=== PATIENT | female | born 1950 | race Caucasian/White ===

== ENCOUNTER → 2016-06-17 | Outpatient (CLI) | payer BC, MEDICARE ==
[~2016-06-17] MED LIST: CALCIUM CITRAT200 MG PO; CENTRUM SILVER1 TA1 PO; FERROUS SU325 MG/TAB PO; FISH OIL CONC1000 MG PO; FOLIC ACID PO; HCTZ 25MG25 MG PO; LISINOPRIL10 MG PO; PRILOSEC 20MG20 MG PO; VITAMIN C250250 MG PO
== END ==
LOC: MC.RAD 07:00
DX: Z12.31 Encounter for screening mammogram for malignant neoplasm of breast (principal)

== ENCOUNTER → 2016-07-19 | Outpatient (CLI) | payer MEDICARE | LOC: COL.RAD 08:15 | DX: M25.551 Pain in right hip (principal) | CPT/HCPCS: J3301 ==

== ENCOUNTER → 2017-06-23 | Outpatient (CLI) | payer MEDICARE, OTHER | LOC: MC.RAD 13:44 | DX: Z12.31 Encounter for screening mammogram for malignant neoplasm of breast (principal) ==

== ENCOUNTER → 2017-11-04 | Outpatient (CLI) | payer MEDICARE, OTHER | LOC: SUN.DIA 13:22 | DX: R73.03 Prediabetes (principal); I10 Essential (primary) hypertension; E66.9 Obesity, unspecified | CPT/HCPCS: G0108 ==

== ENCOUNTER → 2017-11-20 | Outpatient (CLI) | payer MEDICARE, OTHER ==
[~2017-11-20] VITALS: Ht 156.2 cm; Wt 85.0 kg
[~2017-11-20] MED LIST changes: +B-12 500 MCG PO; +CALCIUM 600-D 61 TAB PO; -CALCIUM CITRAT200 MG PO; +GLUCOPHAGE500 MG/TAB PO; +IRON TABLETS325 MG PO; +LUTEIN 15 MG-0.1 SGL PO; +VITAMIN B COMPL1 SGL PO; +VITAMIN C500 MG PO; +VITAMIN D31000 I1 PO; +ZESTORETIC 12.51 TAB PO
[2017-11-20 15:01] VITALS: BP 126/82; PULSE 64
== END ==
LOC: LIGHT 11:35
DX: R73.01 Impaired fasting glucose (principal); I10 Essential (primary) hypertension; E78.00 Pure hypercholesterolemia, unspecified; Z71.3 Dietary counseling and surveillance; Z68.34 Body mass index [BMI] 34.0-34.9, adult; E66.9 Obesity, unspecified
CPT/HCPCS: G0463

== ENCOUNTER → 2017-12-23 | Outpatient (CLI) | payer MEDICARE, OTHER | LOC: SUN.DIA 11:30 | DX: R73.03 Prediabetes (principal); I10 Essential (primary) hypertension; E66.9 Obesity, unspecified | CPT/HCPCS: G0108 ==

== ENCOUNTER → 2017-12-25 | Outpatient (CLI) | payer MEDICARE, OTHER ==
[~2017-12-25] VITALS: Ht 156.2 cm; Wt 80.5 kg
[2017-12-25 13:55] VITALS: BP 134/80; PULSE 76
== END ==
LOC: LIGHT 13:38
DX: R73.01 Impaired fasting glucose (principal); I10 Essential (primary) hypertension; E78.00 Pure hypercholesterolemia, unspecified; E66.9 Obesity, unspecified; Z68.33 Body mass index [BMI] 33.0-33.9, adult; Z71.3 Dietary counseling and surveillance
CPT/HCPCS: G0463

== ENCOUNTER → 2017-12-29 | Outpatient (CLI) | payer MEDICARE, OTHER ==
[~2017-12-29] VITALS: Ht 156.2 cm; Wt 79.8 kg
[2017-12-29 13:50] VITALS: BP 132/66; PULSE 72
== END ==
LOC: LIGHT 13:34
DX: I10 Essential (primary) hypertension (principal); R73.01 Impaired fasting glucose; E78.00 Pure hypercholesterolemia, unspecified; E66.9 Obesity, unspecified; Z68.33 Body mass index [BMI] 33.0-33.9, adult; Z71.3 Dietary counseling and surveillance

== ENCOUNTER → 2018-01-29 | Outpatient (CLI) | payer MEDICARE, OTHER | LOC: LIGHT 01-01 15:33 | DX: R73.01 Impaired fasting glucose (principal); I10 Essential (primary) hypertension; E78.00 Pure hypercholesterolemia, unspecified; E66.01 Morbid (severe) obesity due to excess calories; Z71.3 Dietary counseling and surveillance | CPT/HCPCS: G0463 ==

== ENCOUNTER → 2018-03-12 | Outpatient (CLI) | payer MEDICARE, OTHER ==
[~2018-03-12] VITALS: Ht 156.2 cm; Wt 74.6 kg
[~2018-03-12] MED LIST changes: -B-12 500 MCG PO; +B-121000 MCG PO
[2018-03-12 13:49] VITALS: BP 110/80; PULSE 80
== END ==
LOC: LIGHT 11:24
DX: R73.01 Impaired fasting glucose (principal); I10 Essential (primary) hypertension; E78.00 Pure hypercholesterolemia, unspecified; E66.9 Obesity, unspecified; Z68.30 Body mass index [BMI] 30.0-30.9, adult; Z71.3 Dietary counseling and surveillance
CPT/HCPCS: G0463

== ENCOUNTER → 2018-04-22 | Outpatient (CLI) | payer MEDICARE, OTHER | LOC: SUN.DIA 10:13 | DX: R73.03 Prediabetes (principal); I10 Essential (primary) hypertension; E66.9 Obesity, unspecified | CPT/HCPCS: G0108 ==

== ENCOUNTER → 2018-04-30 | Outpatient (CLI) | payer MEDICARE, OTHER ==
[~2018-04-30] VITALS: Ht 156.2 cm; Wt 71.7 kg
[2018-04-30 13:50] VITALS: BP 120/66; PULSE 80
== END ==
LOC: LIGHT 13:30
DX: R73.01 Impaired fasting glucose (principal); I10 Essential (primary) hypertension; E78.00 Pure hypercholesterolemia, unspecified; E66.9 Obesity, unspecified; Z68.29 Body mass index [BMI] 29.0-29.9, adult; Z71.3 Dietary counseling and surveillance
CPT/HCPCS: G0463

== ENCOUNTER → 2018-06-04 | Outpatient (CLI) | payer MEDICARE, OTHER ==
[~2018-06-04] VITALS: Ht 156.2 cm; Wt 70.5 kg
[2018-06-04 14:40] VITALS: BP 116/62; PULSE 64
== END ==
LOC: LIGHT 13:29
DX: R73.01 Impaired fasting glucose (principal); I10 Essential (primary) hypertension; E78.00 Pure hypercholesterolemia, unspecified; E66.9 Obesity, unspecified; Z71.3 Dietary counseling and surveillance

== ENCOUNTER → 2018-06-26 | Outpatient (CLI) | payer MEDICARE, OTHER | LOC: MC.RAD 07:42 | DX: Z12.31 Encounter for screening mammogram for malignant neoplasm of breast (principal) ==

== ENCOUNTER → 2018-07-16 | Outpatient (CLI) | payer MEDICARE, OTHER | LOC: LIGHT 13:30 | DX: R73.01 Impaired fasting glucose (principal); I10 Essential (primary) hypertension; E78.00 Pure hypercholesterolemia, unspecified; E66.9 Obesity, unspecified; Z71.3 Dietary counseling and surveillance | CPT/HCPCS: G0463 ==

== ENCOUNTER → 2018-08-27 | Outpatient (CLI) | payer MEDICARE, OTHER ==
[~2018-08-27] MED LIST changes: +LIPITOR20 MG PO
== END ==
LOC: LIGHT 13:55
DX: R73.01 Impaired fasting glucose (principal); I10 Essential (primary) hypertension; E78.00 Pure hypercholesterolemia, unspecified; E66.9 Obesity, unspecified; Z71.3 Dietary counseling and surveillance
CPT/HCPCS: G0463

== ENCOUNTER → 2018-10-01 | Outpatient (CLI) | payer MEDICARE, OTHER ==
[~2018-10-01] VITALS: Ht 156.2 cm; Wt 69.4 kg
[2018-10-01 14:09] VITALS: BP 114/64; PULSE 80
== END ==
LOC: LIGHT 11:56
DX: R73.01 Impaired fasting glucose (principal); I10 Essential (primary) hypertension; E78.00 Pure hypercholesterolemia, unspecified; E66.9 Obesity, unspecified; Z68.28 Body mass index [BMI] 28.0-28.9, adult; Z71.3 Dietary counseling and surveillance
CPT/HCPCS: G0463

== ENCOUNTER → 2018-12-10 | Outpatient (CLI) | payer MEDICARE, OTHER ==
[~2018-12-10] VITALS: Ht 156.2 cm; Wt 69.2 kg
[2018-12-10 13:51] VITALS: BP 130/70; PULSE 80
== END ==
LOC: LIGHT 11:46
DX: R73.01 Impaired fasting glucose (principal); I10 Essential (primary) hypertension; E78.00 Pure hypercholesterolemia, unspecified; E66.9 Obesity, unspecified; Z68.28 Body mass index [BMI] 28.0-28.9, adult; Z71.3 Dietary counseling and surveillance
CPT/HCPCS: G0463

== ENCOUNTER → 2019-02-11 | Outpatient (CLI) | payer MEDICARE, OTHER ==
[~2019-02-11] VITALS: Ht 156.2 cm; Wt 70.1 kg
[2019-02-11 13:48] VITALS: BP 130/70; PULSE 76
== END ==
LOC: LIGHT 12:00
DX: R73.01 Impaired fasting glucose (principal); I10 Essential (primary) hypertension; E78.00 Pure hypercholesterolemia, unspecified; E66.9 Obesity, unspecified; Z68.28 Body mass index [BMI] 28.0-28.9, adult; Z71.3 Dietary counseling and surveillance
CPT/HCPCS: G0463

== ENCOUNTER → 2019-05-06 | Outpatient (CLI) | payer MEDICARE, OTHER ==
[~2019-05-06] VITALS: Ht 156.2 cm; Wt 71.4 kg
[2019-05-06 13:56] VITALS: BP 110/62; PULSE 80
== END ==
LOC: LIGHT 13:27
DX: Z68.29 Body mass index [BMI] 29.0-29.9, adult (principal); I10 Essential (primary) hypertension; R73.01 Impaired fasting glucose; E78.00 Pure hypercholesterolemia, unspecified
CPT/HCPCS: G0463

== ENCOUNTER → 2019-06-17 | Outpatient (CLI) | payer MEDICARE, OTHER ==
[~2019-06-17] VITALS: Ht 156.2 cm; Wt 70.5 kg
[2019-06-17 13:41] VITALS: BP 120/68; PULSE 80
== END ==
LOC: LIGHT 13:28
DX: Z68.28 Body mass index [BMI] 28.0-28.9, adult (principal); R73.01 Impaired fasting glucose; E78.00 Pure hypercholesterolemia, unspecified; I10 Essential (primary) hypertension
CPT/HCPCS: G0463

== ENCOUNTER → 2019-09-23 | Outpatient (CLI) | payer MEDICARE, OTHER ==
[~2019-09-23] VITALS: Ht 156.2 cm; Wt 73.9 kg
[2019-09-23 14:39] VITALS: BP 124/64; PULSE 76
== END ==
LOC: LIGHT 07:39
DX: E66.8 Other obesity (principal); Z68.30 Body mass index [BMI] 30.0-30.9, adult; I10 Essential (primary) hypertension; R73.01 Impaired fasting glucose; E78.00 Pure hypercholesterolemia, unspecified
CPT/HCPCS: G0463

== ENCOUNTER → 2021-09-11 | Outpatient (CLI) | payer MEDICARE, OTHER | LOC: MC.RAD 09:20 | DX: Z12.31 Encounter for screening mammogram for malignant neoplasm of breast (principal) ==

== ENCOUNTER 2022-03-26 16:10 | Inpatient (IN) | payer MEDICARE, OTHER ==
[~2022-03-26] VITALS: Ht 155 cm; Wt 84.2 kg
[~2022-03-26 16:10] MED LIST changes: +CENTRUM SILVER1 CTB PO; -CENTRUM SILVER1 TA1 PO; +LIPITOR 80MG80 MG PO
[2022-05-30] VITALS (12 sets, daily range): BP systolic 89–142; BP diastolic 32–67; PULSE 68–86; TEMP 97.5–98.2
[2022-05-30] MEDS ORDERED: CALCIUM-MAGNES1 EAC1 PO (06:34)
[2022-05-30] MEDS ORDERED: MASON NATURAL2000 IU PO (06:35)
[2022-05-30] MEDS ORDERED: NATURAL E400 IU PO (06:36)
[2022-05-30] MEDS ORDERED: FOLIC ACID 40400 MCG PO (06:37)
[2022-05-30] MEDS ORDERED: B-121000 MCG PO (06:37)
--- NOTE | 2022-05-30 10:09 | NUR ---
Pt arrived to the floor. She is alert and oriented, no pain complaints. Stated that her right hip feels a little like pins and needles. Tommie hose and SCDs on bilaterally. Aquacell to right hip with ice pack. Oriented pt to her room and educated on diet/plan of care. Pt bp is low. VICKY Taveras called Toshia MARRUFO regarding the 82/35 BP once she got to the floor. YARON Pope was ok with this low of BP until approximately noon. Pts son is at the bedside at this time. Gave her some ice water and jello
--- NOTE | 2022-05-30 14:00 | NUR ---
Pt continues to do well. She has gotten up with therapy, reports that her him feels good. Pt tolerating carb control diet. No needs, will continue to monitor
--- NOTE | 2022-05-30 15:21 | NUR ---
Pt does not have IS up to this time. PT is drowsy and does fall asleep quickly after conversation. Pt having some pain complaints in her right leg, ice pack in place
--- NOTE | 2022-05-30 18:31 | NUR ---
Pt doing well, reports her pain is tolerable and does not want anything for the pain. Son continues to be present in the room. Ice to right hip. Boosted pt in bed x2 assist. SCDs and maite on bilaterally
--- NOTE | 2022-05-30 19:00 | NUR ---
RECEIVED CHANGE OF SHIFT REPORT FROM DAY SHIFT RN. PATIENT RESTING IN BED DURING REPORT. NO NEEDS REPORTED AT TIME OF REPORT.
[2022-05-31 03:37] VITALS: BP 96/40; PULSE 82; TEMP 98
[2022-05-31 06:39] LABS: HEMATOCRIT 26.8 % (37.0-47.0); HEMOGLOBIN 9.2 g/dl (12.5-16.0)
--- NOTE | 2022-05-31 07:05 | NUR ---
CHANGE OF SHIFT REPORT GIVEN TO DAY SHIFT RN, MANUEL. PATIENT AMBULATED TO BATHROOM WITH SBA/GB/WW WITH NO PROBLEMS. DENIED CHEST PAIN/SOA/NAUSEA THIS SHIFT. TOOK OXYCODONE FOR PAIN EARLY THIS AM, SEE JUN.
[2022-05-31 08:00] VITALS: BP 101/46; PULSE 80; TEMP 98
--- NOTE | 2022-05-31 08:45 | NUR ---
Pt doing well, minimal to no pain complaints at this time. Pt is getting up and moving well with stand by assist. Pts son has been with her and is involved. Pt had breakfast, no complaints. Will continue to monitor
[2022-05-31 11:51] VITALS: BP 97/35; PULSE 74; TEMP 98.3
--- NOTE | 2022-05-31 13:00 | NUR ---
Pt continues to do well with little to no pain complaints. Pts son has been here most of the day. Pt refusing the tylenol at this time, states no pain. Pt hoping to get to go home with home health. Pts son states he will be here until Friday and can stay longer if needed.
--- NOTE | 2022-05-31 13:48 | NUR ---
PUSHPA met with the patient and her son, Mason (ph#[phone]), to discuss discharge plan. The patient lives alone in [place]. Mason lives in [place]. She reports independence with ADLs and has a cane and walker. She shares that she mostly takes spit baths and will just take one bath in the tub a week, due to the tub being "built for 7 ft man." The patient's PCP is Dr. Tyson Dixon and she receives her medications from [facility] in [facility]. The patient's DPOA-HC is in her chart and it designates her son, Mason. The patient plans to return home upon discharge. PT is recommending home health vs outpatient therapy. The patient states that she would like to go to [facility] on [address] [place] and receive outpatient therapy. Mason expressed how she will not have transport to the appointments, until she can drive again. He is more interested in home health for the patient. He also inquired about SNF. PUSHPA informed how the patient is walking 300 ft with PT and both PT/OT recommend home health vs outpatient. The patient is too functional. Mason verbalized understanding. The patient reports that she is open to doing home health, with the goal of then transitioning to outpatient therapy. PUSHPA provided her with Medicare.gov's list of home health agencies that serve [place]. The patient chose [facility]. PUSHPA contacted and faxed a referral to Javad at [facility]. Javad reports that they are able to accept the patient. *Discharge plan: home with home health*
[2022-05-31] MEDS ORDERED: CELEBREX 200MG200 MG PO (14:46)
[2022-05-31] MEDS ORDERED: TYLENOL 500MG500 MG PO (14:46)
[2022-05-31] MEDS ORDERED: ROXICODONE 55 MG/TAB PO (14:46)
[2022-05-31] MEDS ORDERED: ASPI325T6 PO (14:46)
[2022-05-31 15:48] VITALS: BP 91/62; PULSE 90; TEMP 98.4
--- NOTE | 2022-05-31 16:11 | NUR ---
The patient is to discharge back home today, 05/31, with home health services for PT from [facility]. PUSHPA notified and faxed orders to Javad at [facility]. No additional needs at this time.
--- NOTE | 2022-05-31 16:26 | NUR ---
Reviewed discharge instructions with pt to include prescriptions and follow up appointment. Pt continuest to not have any complaints of pain. INT removed and pt dressed and ready for discharge. Pt has ordered dinner and plans to eat before leaving. Informed her to notify nursing when she is ready
== END 2022-05-31 17:30 | disposition home health service (06) | DRG 470 ==
LOC: INPTSU 05-30 05:11 → SURG 05-30 07:15
PROVIDERS: Physician Assistant; ADMIT Orthopaedic Surgery
PROC: 0SR90JZ Replacement of Right Hip Joint with Synthetic Substitute, Open Approach (ICD-10-PCS; principal; 2022-05-30 07:15)
DX: M16.11 Unilateral primary osteoarthritis, right hip (principal); I10 Essential (primary) hypertension; E78.5 Hyperlipidemia, unspecified; I25.10 Atherosclerotic heart disease of native coronary artery without angina pectoris; E11.9 Type 2 diabetes mellitus without complications; G89.29 Other chronic pain; M62.81 Muscle weakness (generalized); M81.0 Age-related osteoporosis without current pathological fracture; Z79.84 Long term (current) use of oral hypoglycemic drugs
CPT/HCPCS: A9284; C1713; C1776; J0690; J2250; J2370; J2405; J2704; J7050; J7120; P9047

== ENCOUNTER → 2022-07-05 | Outpatient (RCR) | payer MEDICARE, OTHER ==
[~2022-07-05] MED LIST changes: +ASPI325T6 PO; +CALCIUM-MAGNES1 EAC1 PO; +CELEBREX 200MG200 MG PO; +FOLIC ACID 40400 MCG PO; +MASON NATURAL2000 IU PO; +NATURAL E400 IU PO; +ROXICODONE 55 MG/TAB PO; +TYLENOL 500MG500 MG PO
== END | disposition home or self-care (01) ==
LOC: MKS.ESL.PT
DX: M25.551 Pain in right hip (principal)

== ENCOUNTER 2022-08-02 09:00 | Outpatient (RCR) | payer MEDICARE, OTHER | END 2022-08-04 | disposition home or self-care (01) | LOC: MKS.ESL.PT | DX: M25.551 Pain in right hip (principal) ==

== ENCOUNTER → 2023-10-20 | Outpatient (CLI) | payer MEDICARE ==
[~2023-10-20] MED LIST changes: +HYZAAR 12.5 MG-1 TAB PO; +LR 1,000 ML IV SCH; +NATURAL FISH1200 MG; +NORCO 325 MG-51 TAB PO; +PRESERVISION A1 EAC3 PO; +TYLENOL PM EXTR1 TA1 PO
== END ==
LOC: MC.RAD 12:59
DX: C50.411 Malignant neoplasm of upper-outer quadrant of right female breast (principal)
CPT/HCPCS: A4648

== ENCOUNTER 2023-10-21 09:15 | Day surgery (SDC) | payer MEDICARE ==
[~2023-10-21] VITALS: Ht 154.9 cm; Wt 90.8 kg
[2023-10-21] VITALS (7 sets, daily range): BP systolic 108–141; BP diastolic 46–88; PULSE 68–79; TEMP 97.3–97.8
[~2023-10-21 09:15] MED LIST changes: -HYZAAR 12.5 MG-1 TAB PO; -LR 1,000 ML IV SCH; -NATURAL FISH1200 MG; -NORCO 325 MG-51 TAB PO; -PRESERVISION A1 EAC3 PO; -TYLENOL PM EXTR1 TA1 PO
[2023-10-21] MEDS ORDERED: Lidocaine PF 2% (20 MG/ML) 5 ML VIAL ONE (10:04)
[2023-10-21] MEDS ORDERED: fentaNYL 50 MCG/ML 2 ML VIAL ONE (10:04)
[2023-10-21] MEDS ORDERED: Midazolam 2 MG/2 ML VIAL ONE (10:04)
[2023-10-21] MEDS ORDERED: LR 1,000 ML IV ONE (11:45)
[2023-10-21] MEDS ORDERED: Ondansetron 4 MG/2 ML VIAL IV PRN ×2 (13:00→14:45)
[2023-10-21] MEDS ORDERED: HYDROmorphone 1 MG/1 ML SYRINGE [PACU/SDC ONLY] IV PRN (13:00)
[2023-10-21] MEDS ORDERED: fentaNYL 50 MCG/ML 1 ML SYRINGE/VIAL [PACU/SDC ONLY] IV PRN (13:00)
[2023-10-21] MEDS ORDERED: PRESERVISION A1 EAC3 PO (13:02)
[2023-10-21] MEDS ORDERED: HYZAAR 12.5 MG-1 TAB PO (13:05)
[2023-10-21] MEDS ORDERED: TYLENOL PM EXTR1 TA1 PO (13:07)
[2023-10-21] MEDS ORDERED: NATURAL FISH1200 MG (13:08)
[2023-10-21] MEDS ORDERED: Lidocaine PF 2% (20 MG/ML) 5 ML VIAL SQ ONE (13:35)
[2023-10-21] MEDS ORDERED: Morphine 4 MG/ML VIAL IV PRN (14:45)
[2023-10-21] MEDS ORDERED: NORCO 325 MG-51 TAB PO (14:46)
[2023-10-21] MEDS ORDERED: Ketorolac 15 MG/ML VIAL IV SCH (15:50)
--- NOTE | 2023-10-21 17:05 | NUR ---
1550 RETURNS TO ROOM 1 PER CART WITH HOB ELEEVATED 30 DEGREES. AWAKE, ALERT. RESP UNLABORED. O2 AT 2L/NC. VITAL SIGNS OBTAINED. DRESSING RIGHT LATERAL BREAST/AXILLA AREA CLEAN DRY AND INTACT. SURGICAL AREA SOFT WITH GENTLE PALPATION. PATIENT REPORTS MODERATE RIGHT AXILLA AREA DISCOMFORT. REPOSITIONED ON CART. ICE PACK IN PLACE. CALL LIGHT AT SIDE. FRIEND AND SON IN ROOM 1605 AWAKE, ALERT. CONVERSES WITH FRIEND/FAMILY 1620 AWAKE, ALERT. O2 OFF. TOLERATES PO WATER AND JUIE WITHOUT NAUSEA 1635 REPORTS INCREASED COMFORT. TOLERATES PO CHEESE AND CRACKERS. REFUSES PO PAIN MED 1640 DISCHARGE INSTRUCTIONS REVIEWED. PATIENT, SON, AND FRIEND VRBALIZE UNDERSTANDING. COPY PROVIDED IN DISCHARGE FOLDER 1657 PATIENT ASSISTED TO CHAIR AT AT SIDE OF CART, THEN DRESSES WITH MINIMAL ASSISTANCE. ASSESSMENT OF SURGICAL SITE AND DRESSING UNCHANGED
== END 2023-10-21 17:07 | disposition home or self-care (01) ==
LOC: SDCO 09:15
DX: C50.511 Malignant neoplasm of lower-outer quadrant of right female breast (principal); E66.9 Obesity, unspecified; Z68.38 Body mass index [BMI] 38.0-38.9, adult
CPT/HCPCS: A4648; A9520-JZ; J0665; J0690; J1170; J1885; J2250; J2704; J3010